=== PATIENT | female | born 1955 | race African-American/Black ===

== ENCOUNTER → 2017-08-07 | Outpatient (CLI) | payer MEDICARE, OTHER | END | disposition home or self-care (01) | LOC: US 12:05 | DX: I87.2 Venous insufficiency (chronic) (peripheral) (principal); I10 Essential (primary) hypertension; E11.8 Type 2 diabetes mellitus with unspecified complications; E78.00 Pure hypercholesterolemia, unspecified | CPT/HCPCS: 93970 ==

== ENCOUNTER → 2017-11-21 | Outpatient (CLI) | payer OTHER ==
[2015-04-29 23:38] VITALS: BP 164/76
--- NOTE | 2017-11-21 10:35 | CARD ---
MR#: [id number] Date of Study: 11/21/2017 Ordering Physician: YOANA JOYCE, Referring Physician: YOANA JOYCE, Tech: Su Clemente APPROVED REPORT EXAM: Two-dimensional and M-mode echocardiogram with Doppler and color Doppler. Other Information Quality : GoodHR: 71bpm Rhythm : NSRTechnically limited study due to body habitus. INDICATION Dyspnea Dyspnea on Exertion 2D DIMENSIONS RVDd2.1 (2.9-3.5cm)Left Atrium(2D)4.1 (1.6-4.0cm) IVSd1.5 (0.7-1.1cm)Aortic Root(2D)3.0 (2.0-3.7cm) LVDd4.8 (3.9-5.9cm)LVOT Diameter2.0 (1.8-2.4cm) PWd1.3 (0.7-1.1cm)LVDs3.1 (2.5-4.0cm) FS (%) 34.0 %SV66.4 ml LVEF(%)62.8 (>50%) Aortic Valve AoV Peak Tobi.138.2cm/sAoV VTI30.3cm AO Peak GR.7.6mmHgLVOT VTI 24.36cm AO Mean GR.4mmHg Mitral Valve MV E Aatvokyn95.2cm/sMV DECEL AFGF230zx MV A Sexrizdx087.2cm/sE/A Ratio0.8 TDI Lateral E' P. V6.52cm/sMedial E' P. V5.87cm/s E/Lateral E'12.8E/Medial E'14.2 Tricuspid Valve TR P. Nebrkjee702fq/sRAP [id number] TR Peak Gr.66cbJhVHXV57pbXi Pulmonary Vein S1 Suilskqv56.6cm/sS2 Ckmuckvu98.32cm/s D2 Oomtqdtf44.3cm/sPVa [id number] LEFT VENTRICLE The left ventricle is normal size. There is normal left ventricular wall thickness. The left ventricu lar systolic function is normal and the ejection fraction is within normal range. The Ejection Fracti on is 55-60%. There is normal LV segmental wall motion. Tissue Doppler imaging reveals mild left vent ricular diastolic dysfunction. RIGHT VENTRICLE The right ventricle is normal size. There is normal right ventricular wall thickness. The right ventr icular systolic function is normal. ATRIA The left atrium size is normal. The right atrium size is normal. Interatrial septum not well visualiz ed. AORTIC VALVE The aortic valve is calcified but opens well. Doppler and Color Flow revealed no significant aortic r egurgitation. There is no significant aortic valvular stenosis. MITRAL VALVE The mitral valve is mildly thickened. There is no mitral valve stenosis. Doppler and Color Flow revea led no mitral valve regurgitation noted. TRICUSPID VALVE Not well visualized. Doppler and Color Flow revealed trace tricuspid regurgitation. Estimated PAP 33 mmHg. There is no tricuspid valve stenosis. PULMONIC VALVE Not well visualized. Doppler and Color Flow revealed no pulmonic valvular regurgitation. There is no pulmonic valvular stenosis. GREAT VESSELS The aortic root is normal in size. The IVC was not well visualized. PERICARDIAL EFFUSION There is no evidence of significant pericardial effusion. Critical Notification Critical Value: No <Conclusion> The left ventricular systolic function is normal and the ejection fraction is within normal range. Th e Ejection Fraction is 55-60%. There is normal LV segmental wall motion. Technically difficult study Signed by : Ethan Churchill, Electronically Approved : 11/21/2017 10:35:09
== END | disposition home or self-care (01) ==
LOC: ECHO 08:02
PROVIDERS: ATTEND Internal Medicine Cardiovascular Disease
DX: R06.09 Other forms of dyspnea (principal); I10 Essential (primary) hypertension; E11.9 Type 2 diabetes mellitus without complications; E78.00 Pure hypercholesterolemia, unspecified; Z90.710 Acquired absence of both cervix and uterus; Z88.0 Allergy status to penicillin
CPT/HCPCS: 93306

== ENCOUNTER → 2017-12-25 | Outpatient (CLI) | payer OTHER ==
[~2017-12-25] VITALS: Ht 154.9 cm; Wt 117.9 kg
[2017-12-25] VITALS (11 sets, daily range): BP systolic 100–202; BP diastolic 62–99
[~2017-12-25] MED LIST: 0.9 % SODIUM CHLORIDE 10 ML DISP.SYRIN. IV PRN; ASPI-612 PO; CALC1TAB75 PO; CONTRAST GIVEN. MC PRN; FERR325T14 PO; HEPARIN for IV BOLUS 10,000 UNIT/10 ML VIAL. IART ONE; HEPARIN for IV BOLUS 10,000 UNIT/10 ML VIAL. ONE; HYDR12.58 PO; INSU100I13 SQ; INSU200I SQ; IODIXANOL 320 MG/ML 100 ML VIAL. IART ONE; IODIXANOL 320 MG/ML 100 ML VIAL. ONE; IV NORMAL SALINE 1000ML BAG 1,000 ML IV SCH; LEVO200T PO; LIDOCAINE 1% PF 2 ML VIAL. INJ ONE; LIDOCAINE 1% PF 2 ML VIAL. ONE; LIDOCAINE 1% PF 30 ML VIAL. INJ ONE; LIDOCAINE 1% PF 30 ML VIAL. ONE; LIPITOR80 MG PO; LISI-130 PO; LISINOPRIL 20 MG TABLET PO SCH; LUBI24CA7 PO; METO50TA6 PO; METOPROLOL TART IMMED RELEASE 50 MG TABLET. PO ONE; MIDAZOLAM HCL/PF 2 MG/2 ML VIAL. IV ONE; MIDAZOLAM HCL/PF 2 MG/2 ML VIAL. ONE; NITROGLYCERIN 200 MCG/2 ML SYRINGE FOR CATH/VASC LAB. IART ONE; NITROGLYCERIN 200 MCG/2 ML SYRINGE FOR CATH/VASC LAB. ONE; NITROGLYCERIN PREMIX 250 ML IV ONE; NITROGLYCERIN PREMIX 250 ML IV PRN; NITROGLYCERIN SUBLINGUAL 0.4 MG BOTTLE OF 25. SL PRN; OMEP20TA63 PO; VERAPAMIL 5 MG/2 ML VIAL. IART ONE; VERAPAMIL 5 MG/2 ML VIAL. ONE; fentaNYL PF VIAL 100 MCG/2 ML VIAL IV ONE; fentaNYL PF VIAL 100 MCG/2 ML VIAL ONE
[2017-12-25 08:42] LABS: HEMATOCRIT 36.4 % (36.0-47.0); HEMOGLOBIN 12.4 g/dL (12.0-15.5); RED BLOOD COUNT 4.26 x10^6/uL (3.50-5.40); RED CELL DISTRIBUTION WIDTH 13.9 % (11.5-14.5)
[2017-12-25 08:51] LABS: PROTHROMBIN TIME PATIENT 12.8 SEC (11.7-14.0)
[2017-12-25 08:54] LABS: CALCIUM 8.9 mg/dL (8.5-10.1); GFR 30.8; POTASSIUM 3.7 mmol/L (3.5-5.1)
--- NOTE | 2017-12-25 10:04 | PDOC ---
MODERATE SEDATION ASSESSMENT RISKS/ALTERNATIVES Risks/Alternatives Risks and alternatives of this type of sedation and procedure discussed with: RISK/ALTERNATIVES: Patient H & P ON CHART H & P H & P on chart and reviewed for co-morbid conditions and appropriate labs. H&P ON CHART: Yes STATUS PREG STATUS ASSESSED: Yes MEDS/ALLERGIES REVIEWED Meds/Allergies Reviewed Medications and Allergies including time and route of recently administered narcotics and sedatives. MEDS/ALLERGIES REVIEWED: Yes ASA RATING ASA RATING: II AIRWAY ASSESSMENT Airway Assessment Airway patency, oral function limitations, presence of caps, crowns, dentures, partials, and ability to extend neck assessed. AIRWAY ASSESSMENT: Yes MALLAMPATI SCORE MALLAMPATI SCORE: II PRE-SEDATION ASSESSMENT PRE-SEDATION ASSESSMENT: Yes YOANA JOYCE MD Dec 25, 2017 10:04
--- NOTE | 2017-12-25 16:58 | CARD ---
MR#: [id number] Date of Study: 12/25/2017 Ordering Physician: YOANA HOGUE, Referring Physician: YOANA HOGUE, Tech: Komal Terry, RT (R) APPROVED REPORT Procedures Left heart catheterization. Selective coronary angiogram. The patient is a 62-year-old female with progressive dyspnea on exertion. Outpatient nuclear stress t est suggested anterior wall ischemia. In this setting cardiac catheterization was recommended. Risks and benefits were discussed with the patient. She agreed to proceed. Initially the area of the right radial artery was prepared in the usual manner with Betadine, sterile draping and local anesthetic after an acceptable Ian's test. A quick catheter system was used to e nter the right radial artery, a wire placed and a 6 [place] sheath placed over the wire. The standard mixture of antispasm medications and heparin was administered. Over a J-wire, a Be diagnostic ca theter was placed to the ascending aorta. This catheter was unable to engage either the right or the left coronary system. Using an jiiv-sno-ueyn exchange a JL 3.5 diagnostic catheter was advanced to th e ascending aorta. It also was unable to engage the left system. Again using an ghhx-bdi-jrln exchang e a [place] right diagnostic catheter was advanced to the ascending aorta. Although it was able to be placed in the typical position for the right coronary artery no right coronary was found. Again us ing an emab-yns-lduc technique a JL 4 diagnostic catheter was placed to the ascending aorta. It could not engage the right coronary vessel but it did show the suggestion of a right coronary artery in a very superior position. Secondary to this I felt we could not engage the RCA from the radial artery a pproach and we therefore removed our catheters and proceeded to a right femoral artery approach. The right femoral artery was prepared the usual manner with Betadine, sterile draping and local anestheti c. An 18-gauge needle was used to enter the right femoral artery, a wire placed and a 6 [place] sheath placed over wire. A 6 [place] JL4 diagnostic catheter was advanced to the ascending aorta. It was the n used to engage the left coronary system and sequential injections in various views were obtained. A 6 [place] right diagnostic catheter was advanced to the ascending aorta. It was able to enga ge the right coronary artery which was at a very superior position. Sequential injections in various views were obtained. This catheter then was then removed and a pigtail catheter was advanced to the a scending aorta. It was then passed to the left ventricle. Pressures and pullback pressures were obtai casey but no left ventriculogram was performed. The catheter was removed from the patient. Injection of the femoral artery sheath showed normal placement. The sheath was removed and sealed with an Angio-S eal product. The catheter in the right radial artery was then removed in the standard manner and hemo stasis obtained with a TR band. The patient was then moved to the holding area in stable condition. Findings. Hemodynamics. LV pressure of 190/4, 11. Aortic root pressure of 186/98. Coronaries. Left main. The left main was a normal vessel with no lesions. Left anterior descending. The LAD was a somewhat tortuous vessel. It a mid 35-40% lesion. Left circumflex. The left circumflex was a moderate size vessel. A large obtuse marginal 1 branch had a 20-25% lesion. The left circumflex had a very small distal vessel. Right coronary artery. The right coronary had a superior takeoff. It was a dominant vessel. It had a mid 10-15% lesion. A <Conclusion> Moderate LAD disease with a 35-40% mid lesion. Mild disease in left circumflex and the right coronary artery with no lesions greater than 20%. Normal LVEDP. Signed by : Yoana Hogue MD Electronically Approved : 12/25/2017 16:58:27
== END | disposition home or self-care (01) ==
LOC: CCL 07:55
PROVIDERS: ATTEND Internal Medicine Cardiovascular Disease
DX: I25.10 Atherosclerotic heart disease of native coronary artery without angina pectoris (principal); I10 Essential (primary) hypertension; E78.00 Pure hypercholesterolemia, unspecified; E11.9 Type 2 diabetes mellitus without complications; Z79.899 Other long term (current) drug therapy; Z79.82 Long term (current) use of aspirin; Z79.4 Long term (current) use of insulin; Z90.710 Acquired absence of both cervix and uterus; Z88.0 Allergy status to penicillin
CPT/HCPCS: 36415; 80048; 85027; 85610; 93458; 99152; 99153; C1769; J1644; J2250; J3010; J3490; J7030; C1771; G0269